=== PATIENT | male | born 1980 | race Caucasian/White ===

== ENCOUNTER 2016-12-25 12:29 | Emergency (ER) | payer SELFPAY ==
[~2016-12-25 12:29] MED LIST: ATIVAN-DPS1 MG PO; BUPRENORPHINE PO; SEROQUEL DPS100 MG PO; WELLBUTRIN XL150 MG PO; [UNRECOGNIZED DRUG - OTHER] PO
== END 2016-12-25 13:00 | disposition left against medical advice (07) ==
LOC: ER 12:29
DX: Z53.21 Procedure and treatment not carried out due to patient leaving prior to being seen by health care provider (principal)

== ENCOUNTER 2016-12-25 15:39 | Emergency (ER) | payer SELFPAY ==
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
== END 2016-12-25 17:05 | disposition home or self-care (01) ==
LOC: ER 15:39
DX: T59.811A Toxic effect of smoke, accidental (unintentional), initial encounter (principal); J70.5 Respiratory conditions due to smoke inhalation; F17.210 Nicotine dependence, cigarettes, uncomplicated; M54.5 Low back pain; Z88.0 Allergy status to penicillin; Y92.009 Unspecified place in unspecified non-institutional (private) residence as the place of occurrence of the external cause